=== PATIENT | female | born 1960 | race African-American/Black ===

== ENCOUNTER 2017-03-09 02:52 | Emergency (ER) | payer BC ==
[~2017-03-09 02:52] MED LIST: ACET500CAP PO; ADVIL PO; ALEVE220 MG PO; ASAB PO; AT25 PO; BUM1 PO; HAIR AND NAIL; K500 PO; MAX25 PO; MULTIPLE VIT PO; PERCOCET1 TA4 PO; VIT C; VITC500 PO
[2017-03-09 02:55] LABS: ASCORBIC ACID (UR NOT ORDER) NEG (NEG); BILIRUBIN, URINE NEGATIVE (NEG); ER URINALYSIS TAT 0 Hrs 00 Mins; KETONE, URINE NEGATIVE (NEG); LEUKOCYTE ESTERASE(NOT OR LARGE (NEG); NITRITE (URINE) NEG (NEG); WBC (NOT ORDERED) (RFLEX) 11 (0-5)
[2017-03-09 03:19] LABS: BASOPHILS 0.1 %; BASOPHILS ABSOLUTE 0.01 10/3/uL (0.0-0.16); EOSINOPHILS 0 %; IMMATURE GRANULOCYTES 0.1 %; IMMATURE GRANULOCYTES ABSOLUTE 0.01 10/3/uL (0.0-0.11); LYMPHOCYTES 9.8 %; LYMPHOCYTES ABSOLUTE 0.77 10/3/uL (0.67-4.30); MEAN CORPUS HGB CONC 34.2 g/dL (32.0-36.0); MEAN CORPUSCULAR HEMOGLOB 32.5 pg (26.0-34.0); MEAN PLATELET VOLUME 8.9 fL (9.2-13.0); MONOCYTES 4.1 %; MONOCYTES ABSOLUTE 0.32 10/3/uL (0.21-1.20); NEUTROPHILS 85.9 %; NEUTROPHILS ABSOLUTE 6.78 10/3/uL (2.02-8.40); PLATELET COUNT 166 10/3/uL (150-400); RBC DISTRIBUTION WIDTH 12.4 % (12.0-16.0); RED CELL COUNT 3.38 10/6/uL (4.0-5.6)
[2017-03-09 03:20] LABS: ER CBC TAT 0 Hrs 00 Mins; HEMATOCRIT 32.2 % (36.0-48.0); MANUAL DIFF NO %; MEAN CORPUSCULAR VOLUME 95.3 fL (80-100); WHITE BLOOD CELLS 7.9 10/3/uL (4.5-10.5)
[2017-03-09 03:35] LABS: A/G RATIO 1.1 (0.7-1.9); ALBUMIN 3.6 G/DL (3.5-5.0); ALKALINE PHOSPHATASE 140 U/L (45-117); BUN (BLOOD UREA NITROGEN) 16 MG/DL (6-23); CALCIUM, SERUM 8.9 MG/DL (8.5-10.4); CHLORIDE, SERUM 109 MMOL/L (96-112); CO2 (CARBON DIOXIDE) 27 MMOL/L (24-34); CREATININE 0.89 MG/DL (0.55-1.02); GFR AFRICAN AMERICAN 83 ML/MIN (>=60); GFR NON AFRICAN AMERICAN 72 ML/MIN (>=60); GLOBULIN 3.4 G/DL (2.5-4.1); GLUCOSE, SERUM 140 MG/DL (60-99); POTASSIUM, SERUM 3.7 MMOL/L (3.5-5.3); SGOT(AST) 288 U/L (5-40); SGPT(ALT) 173 U/L (5-65); SODIUM, SERUM 143 MMOL/L (135-148); TOTAL BILIRUBIN 0.9 MG/DL (0-1.2)
[2017-03-18] MEDS ORDERED: NEUR100 PO (16:25)
[2017-03-18] MEDS ORDERED: AT25 PO (16:26)
[2017-03-18] MEDS ORDERED: VITAMIN D1000 UNI1 PO (16:27)
[2017-03-18] MEDS ORDERED: VITAMIN B-121000 MC1 SL (16:27)
[2017-03-18] MEDS ORDERED: OXYCOD PO (16:28)
[2017-03-18] MEDS ORDERED: PR12.5 PO (16:29)
[2017-03-18] MEDS ORDERED: MAX25 PO (16:57)
[2017-03-24] MEDS ORDERED: VITAMIN D1000 UNI1 PO (03:52)
[2017-03-24] MEDS ORDERED: VITAMIN B-121000 MC1 SL (03:52)
[2017-03-24] MEDS ORDERED: NEUR100 PO (03:53)
[2017-03-24] MEDS ORDERED: PR12.5 PO (03:54)
[2017-03-24] MEDS ORDERED: ENDOCET1 TAB PO (03:54)
[2017-04-11] MEDS ORDERED: PCET PO (10:56)
[2017-04-11] MEDS ORDERED: CIP5 PO (10:56)
== END 2017-03-09 08:55 | disposition home or self-care (01) ==
LOC: ER 02:52
PROVIDERS: Specialist
DX: K80.70 Calculus of gallbladder and bile duct without cholecystitis without obstruction (principal); I10 Essential (primary) hypertension; Z85.3 Personal history of malignant neoplasm of breast; Z88.8 Allergy status to other drugs, medicaments and biological substances
CPT/HCPCS: 74176; 76705; 80053; 81001; 83690; 85025; 87086; 96374; 96375; 99284; J1170; J2405

== ENCOUNTER 2017-03-21 10:39 | Day surgery (SDC) | payer BC ==
--- NOTE | ~2017-03-21 | OP ---
Record Of Operation [facility] [address] [place]. [address] NAME: JESSICA GARCIA : 58 STATUS : [facility]#: [id number] AGE: 56 ADM/REG DATE : 03/21/17 MR#: [id number] REPORT SERV DATE: 03/21/17 DICTATED BY: SIXTO DAVIDSON JR. DATE: 03/21/17 REPORT STATUS : Draft TRANSCRIBED BY: MODScott DATE: 03/21/17 DATE OF PROCEDURE: 03/21/2017 [facility] OPERATOR: Amanda Moreno. PROCEDURE: Laparoscopic cholecystectomy, repair of umbilical hernia. PREOPERATIVE DIAGNOSIS: Cholelithiasis with cholecystitis. POSTOPERATIVE DIAGNOSIS: Cholelithiasis with cholecystitis with umbilical hernia. ANESTHESIA: General. INDICATIONS: The patient has presented with upper abdominal pain. She has had a cholelithiasis and cholecystitis on imaging. Cholecystectomy is therefore indicated. FINDINGS: On x-ray of the abdomen, there was noted to be an umbilical hernia. Intra- abdominally there was evidence of inflammation of the gallbladder, it was removed successfully. It does contain multiple stones. No other significant abnormalities were identified. DESCRIPTION OF PROCEDURE: With adequate general anesthesia, the patient was placed in supine position. The abdomen was prepped and draped sterilely. 0.5% Marcaine was used for local infiltration at all trocar sites. An infraumbilical incision was made. The dissection was carried down sharply through the subcutaneous tissues. The hernia sac was identified and excised sharply from surrounding tissues. The peritoneal cavity was therefore entered. A balloon tipped trocar was introduced. The abdomen was insufflated with CO2 and the laparoscope was introduced with the above-noted findings. Under direct vision, a 10/11 trocar was placed in the epigastric region and then two 5s in the subcostal. The gallbladder was identified, grasped, and retracted in a cephalad manner. Adhesions were taken off the gallbladder securing bleeders with electrocautery, and the cystic duct and artery were identified, doubly clipped and divided. Additional arterial branch was clipped and divided. The gallbladder was removed from its bed with electrocautery, was placed in an Endopouch, and extracted through the umbilical site. It was submitted to Pathology. Flaps were raised around the umbilical site to facilitate closure, it was then closed with figure- of-eight suture 0 PDS. This was done after assurance of hemostasis in the gallbladder bed with electrocautery and other trocars sites were all closed with dermal Monocryl. Sterile dressings were applied. The patient left the operating room in satisfactory condition. ESTIMATED BLOOD LOSS: 10 mL. LILIAN/ANTONY Sixto Davidson Record Of [address] [address] NAME: JESSICA GARCIA : 58 STATUS : [facility] PAT#: [id number] AGE: 56 ADM/REG DATE : 03/21/17 MR#: [id number] REPORT SERV DATE: 03/21/17 DICTATED BY: SIXTO DAVIDSON JR. DATE: 03/21/17 REPORT STATUS : Draft TRANSCRIBED BY: ANTONY DATE: 03/21/17 Karthikeyan Caro / [id number] CC: Karthikeyan Akers Jr., SUSAN R.
[~2017-03-21 10:39] MED LIST changes: +NEUR100 PO; +OXYCOD PO; +PR12.5 PO; +VITAMIN B-121000 MC1 SL; +VITAMIN D1000 UNI1 PO
[2017-03-24] MEDS ORDERED: VITAMIN B-121000 MC1 SL (03:52)
[2017-03-24] MEDS ORDERED: VITAMIN D1000 UNI1 PO (03:52)
[2017-03-24] MEDS ORDERED: NEUR100 PO (03:53)
[2017-03-24] MEDS ORDERED: ENDOCET1 TAB PO (03:54)
[2017-03-24] MEDS ORDERED: PR12.5 PO (03:54)
[2017-04-11] MEDS ORDERED: PCET PO (10:56)
[2017-04-11] MEDS ORDERED: CIP5 PO (10:56)
== END 2017-03-21 17:41 | disposition home or self-care (01) ==
LOC: SDC 10:39
PROVIDERS: Specialist
PROC: 0WQF0ZZ Repair Abdominal Wall, Open Approach (ICD-10-PCS; 2017-03-21)
PROC: 0FT44ZZ Resection of Gallbladder, Percutaneous Endoscopic Approach (ICD-10-PCS; principal; 2017-03-21 12:45)
DX: K80.10 Calculus of gallbladder with chronic cholecystitis without obstruction (principal); K42.9 Umbilical hernia without obstruction or gangrene; I10 Essential (primary) hypertension; M19.90 Unspecified osteoarthritis, unspecified site; K21.9 Gastro-esophageal reflux disease without esophagitis; Z90.11 Acquired absence of right breast and nipple; Z79.899 Other long term (current) drug therapy; Z79.891 Long term (current) use of opiate analgesic
CPT/HCPCS: 71020; 82150; 88302; 88304; 93005; A9270-GY; C1726; J0690; J1885; J2250; J2270; J2405; J2710; J3010